=== PATIENT | male | born 1970 | race Caucasian/White ===

== ENCOUNTER 2023-10-27 20:01 | Inpatient (IN) | payer OTHER, SELFPAY ==
[2023-10-27 14:51] VITALS: BP 127/96
--- NOTE | 2023-10-27 15:44 | ED.GENMED ---
History of Present Illness
General
Chief Complaint: Abdominal Pain
Source: patient
Exam Limitations: none
Time Seen by Provider: 10/27/23 15:09
Nursing documentation reviewed up to this point in time: agreed with
Travel History
Have you had any contact with someone who has COVID-19?: No
Do you have any symptoms of coronavirus? Fever > 100 degrees, chills, cough, shortness of breath, sore throat, loss of taste or smell, muscle aches, or headache?: No
History of Present Illness
History of Present Illness:
52-year-old male with no chronic medical issues presents for evaluation of abdominal pain. Patient reports symptoms have been ongoing for the past 8 weeks but he says they are becoming more frequent and more intense. He says that for the past 2
weeks or so they have been essentially constant with waxing waning intensity. He reports an intense sharp pain in the periumbilical region that radiates towards the epigastrium and across the upper abdomen. He says that symptoms seem to be worse
at night, no other triggering factors noted. No relieving factors noted�he has tried esio-btb-bznmlya medication such as Pepto-Bismol, Gas-X, Maalox, Tums without success. He says he has had some nausea and occasional vomiting particular at
nighttime. Denies any diarrhea or constipation. Denies any urinary symptoms. Denies any fevers or chills. He has never had similar symptoms in the past. He denies any prior abdominal surgeries. He does note he has been under tremendous stress
with his job recently. He does admit to cigarette smoking but denies any drug use including marijuana, denies any regular alcohol use (he says 1-2 drinks every 2 weeks).
Review of Systems
Review of Systems
All Other Systems: ROS reviewed and negative except as documented in HPI and ROS
Constitutional: Denies fever or chills
Respiratory: Denies cough or trouble breathing
Cardiac: Denies chest pain or palpitations
ABD/GI: Reports abdominal pain, nausea and vomiting; Denies diarrhea or constipated
: Denies dysuria, frequency or flank pain
Musculoskeletal: Denies neck pain or back pain
Neurological: Denies dizzy or headache
Phy Exam
Physical Exam
Physical Exam:
General: Awake, alert, oriented x3; no acute distress
Head: Normocephalic, atraumatic
Eyes: Conjunctiva normal, EOMI, pupils equal round and reactive to light bilaterally, sclera anicteric
Throat: Airway intact, handling secretions
Neck: Trachea midline, supple without meningismus
Lungs: Clear to auscultation bilaterally, no wheezing, rales, rhonchi
Heart: Tachycardia with regular rhythm, no murmurs, gallops, or rubs
Abd: Soft, non distended, tender to palpation in the periumbilical region as well as across the upper abdomen
Neuro: Cranial nerves grossly intact, speech fluid
Skin: no rash
Extremities: No edema in extremities, warm and well-perfused
Scores
Heart Failure Risk
Heart Failure Risk Score: Not Applicable
Heart Score for Chest Pain Patients
STEMI patient?: Not applicable
Withdrawal Assessment of Alcohol
Withdrawal Assessment Completed?: Not applicable
Course
Orders/Labs/Results
Orders:
Orders
10/27/23 14:54
Electrocardiogram (*1) Urgent
Reason for Study: Abdominal Pain
EKG- Treatment ONCE
10/27/23 15:33
CT Abd/pelvis W Iv Cont Urgent
Comment:
Reason For Exam: periumbilical abd pain radiate to epigastrium
10/27/23 15:50
Electrocardiogram (*1) Urgent
Reason for Study: Abdominal Pain
EKG- Treatment ONCE
Pantoprazole [Protonix IV] 40 mg IV NOW STA
10/27/23 15:51
0.9% Sodium Chloride 1000 ml [Nss] 1,000 ml IV BOLUS
10/27/23 16:31
Complete Blood Count/With Diff Urgent
Comprehensive Metabolic Panel Urgent
Lipase Urgent
Troponin I Urgent
Urinalysis Reflex To Culture Urgent
Date Specimen was Collected: 10/27/23
Time Specimen was Collected: 15:21
Urine Microscopic Reflex Cult Urgent
10/27/23 18:53
GASTROINTESTINAL CONSULT Urgent
Consulting Provider: Jahaira Conway
Was physician already notified: Yes
Abnormal Lab Results
10/27/23
16:31
Plt Count 401 H 10^3/uL
(130-400)
Lipase 318 H U/L
(23-300)
Ur Occult Blood Reflex 1+ A
(Negative)
10/27/23 16:31
10/27/23 16:31
Vital Signs
Initial and Last Documented VS:
Initial Vital Signs
Temp Pulse Resp BP Pulse Ox
36.6 C 126 18 127/96 99
10/27/23 14:51 10/27/23 14:51 10/27/23 14:51 10/27/23 14:51 10/27/23 14:51
Last Documented Vital Signs
Temp Pulse Resp BP Pulse Ox
36.6 C 126 18 127/96 99
10/27/23 14:51 10/27/23 14:51 10/27/23 14:51 10/27/23 14:51 10/27/23 14:51
MDM/Problems Addressed
Differential Diagnosis Includes:
Gastritis, PUD, pancreatitis, cholelithiasis, cholecystitis, bowel obstruction, kidney stone
MDM/Problems Addressed:
52-year-old male presents for evaluation of abdominal pain intermittent for the past 8 weeks more persistent over the past 2 weeks. Located primarily in the periumbilical region but radiates across the upper abdomen. Seems to be worse at night.
No relieving factors. Tachycardic but otherwise normal vitals here. Physical exam as above. Check labs including a CBC and a CMP, lipase. Check urinalysis. Sent for CT of the abdomen pelvis. Symptoms sound consistent with GI pathology, nothing
to suggest cardiac equivalent�pain is primarily periumbilical although does radiate towards upper abdomen, patient is quite clear that there is no exertional component. He does however have some cardiac risk factors�will check an EKG and troponin
in an abundance of caution. Will provide some IV fluids. Treat with IV Protonix. Will reassess after the above.
Labs reviewed: CBC and CMP unremarkable. Lipase marginally elevated at 318. Troponin was undetectable. Urinalysis negative. CT of the abdomen pelvis showed hazy stranding around the second portion of the duodenum also adjacent to the head of the
pancreas�could be duodenal ulcer versus acute pancreatitis. Lipase was marginal and no significant vomiting--somewhat lower suspicion for acute pancreatitis especially as patient denies heavy alcohol use. Suspect this is more likely duodenal ulcer
and with symptoms significantly worsening and causing severe pain admit for GI consultation. Case discussed with GI for consultation. Case discussed with hospitalist for admission.
*Radiology
Radiology exam reviewed: radiology read reviewed
*Pulse Oximetry
Patient hypoxic: no
*EKG
Interpreted by ED Provider?: Yes
Heart Rate: 105
Rate: tachycardiac
Rhythm: sinus
[place]: normal axis
Interval: normal interval
QRS Pattern: normal QRS
Ischemia: no ischemia
*Critical Care Note
Total Time (30-74mins, 75-104mins- exclusive of procedures): Not Applicable
Data Reviewed
Source: patient
Patient Management
Discussion with other providers: Hospitalist (Discussed with hospitalist) and Financial Services Consultant (Discussed with gastroenterology)
Escalation/DeEscalation of care consider admission/obs:
Admission indicated
ED Attending Note
-
Portions of this chart may have been created with voice recognition software.� Occasional wrong word or��sound alike� substitutions may have occurred due to the inherent limitations of voice recognition software.
Discharge Plan
Departure
Patient Disposition: Admit
Date of Disposition: 10/27/23
Time of Disposition: 18:53
Admit to doctor: Allyson
Presentation/result/management discussed w/ accepting MD/DO: Hospitalist
Discharge Problem:
Abdominal pain, Duodenal ulcer
Referrals:
UNKNOWN - PT DOES,NOT KNOW [Family Provider] -
Interventions
Interventions:
*Risk Screen - Suicide Last Done: 10/27/23 14:51
*General Assessment Last Done: 10/27/23 14:51
*Neglect/Abuse Screening Last Done: 10/27/23 14:51
ED- Fall Risk Assessment Last Done: 10/27/23 15:50
*ED COVID-19 Vaccine History Last Done: 10/27/23 14:51
IA-Kqjcpf-Tziwdfoksz Assessment Last Done: 10/27/23 15:50
Discharge Date and Time
Print Language: LIBERIAN
[2023-10-27] MEDS: NSS 1000 IV (16:45)
[2023-10-27] MEDS: PROTONIX IV 40 MG IV ×2 (16:45→21:38)
[2023-10-27 16:54] LABS: % Basophils 0.7 % (0-2); % Eosinophils 2.3 % (0-6); % Immature Granulocytes 0.3 % (0-0.5); % Lymphocytes 32.2 % (20.5-51.1); % Monocytes 5.6 % (1.7-9.3); % Neutrophils 58.9 % (42.2-75.2); Absolute Basophils 0.1 10^3/uL (0-0.2); Absolute Eosinophils 0.2 10^3/uL (0-0.7); Absolute Lymphocytes 3.2 10^3/uL (1.2-3.4); Absolute Monocytes 0.6 10^3/uL (0.1-0.6); Absolute Neutrophils 5.8 10^3/uL (1.4-6.5); Hematocrit 43.9 % (39.0-52.0); Hemoglobin 15.3 g/dL (13.0-18.0); Mean Corp Hgb Conc. 34.9 g/dL (33.0-37.0); Mean Corpuscular Hgb 29.9 pg (27.0-31.0); Mean Corpuscular Volume 85.9 fL (80.0-94.0); Mean Platelet Volume 8.7 fL (7.4-10.4); Nucleated Red Blood Cells % 0 % (-); Platelet Count 401 10^3/uL (130-400); Red Blood Cell Count 5.11 10^6/uL (4.70-6.10); White Blood Cell Count 9.9 10^3/uL (4.8-10.8)
[2023-10-27 17:05] LABS: ALT (SGPT) 14 U/L (0-50); AST (SGOT) 23 U/L (17-59); Albumin 4.3 g/dl (3.5-5.0); Alkaline Phosphatase 78 U/L (38-126); Blood Urea Nitrogen 13 mg/dl (9-20); Calcium 9.4 mg/dl (8.4-10.2); Carbon Dioxide 24 mmol/L (22-30); Chloride 106 mmol/L (98-107); Glucose 90 mg/dl (70-99); Lipase 318 U/L (23-300); Potassium 4.6 mmol/L (3.5-5.1); Sodium 139 mmol/L (135-145); Total Bilirubin 0.3 mg/dl (0.2-1.3); Total Protein 7.5 g/dl (6.3-8.2); eGFR > 60.00
[2023-10-27 17:14] LABS: Troponin I < 0.012 ng/ml
[2023-10-27 17:20] VITALS: BP 123/79
[2023-10-27 18:51] LABS: Urine Albumin Negative (Neg - Trace); Urine Bilirubin Negative (Negative); Urine Character Clear (Clear); Urine Color Yellow; Urine Glucose Negative (Negative); Urine Ketone Negative (Negative); Urine Leukocyte Negative (Negative); Urine Nitrite Negative (Negative); Urine Occult Blood 1+ (Negative); Urine Urobilinogen Negative (Neg - 1+)
[2023-10-27 18:54] VITALS: BP 125/79
[2023-10-27 19:15] LABS: Urine Bacteria Few (Negative); Urine Red Blood Cell 0-2 /HPF (0-2); Urine White Cell 0-2 /HPF (0-5)
--- NOTE | 2023-10-27 19:48 | HPS.HSE ---
Family Physician
-
Family Physician: NOT KNOW UNKNOWN - PT DOES
Chief Complaint
-
Abd Pain
History of Present Illness
Patient is a 52y M with no significant PMH who presents to ED complaining of abdominal pain. Patient states that he has had abdominal pain for the past 3-4 weeks. His symptoms have been gradually progressive in that time. He notes that pain is
intermittent and migratory. He haad his most severe episode of pain after eating ice cream a few nights ago. He denies any changes in bowel habits, black or bloody stools. He denies any fevers or chills. He developed nausea and has had several
episodes of non-bloody / bilious emesis over the past 2-3 days.
He notes poor appetite and decreased PO intake due to his symptoms.
Patient denies any prior history of similar symptoms.
He takes no current medications.
Medical History
Past Medical History
Past Medical History: Reports None
Past Surgical History: Reports Other
Additional Past Surgical History:
Left Knee Surgeries (multiple)
Social History
Tobacco: Smoker (Current every day smoker. Approx 30 pack years total use.)
Alcohol: Occasional
Drug: None
Family History
Family History: Other (Father: CAD)
Allergies / Home Medications
Allergies reflects when Allergies were last updated in [facility].
Home Medications with original date entered in [facility]
Allergy/Medication List:
Allergies
Allergy/AdvReac Type Severity Reaction Status Date / Time
No Known Allergies Allergy Unverified 10/27/23 14:53
Home Medications
No Meds [No Current Medications] 10/27/23
Review of Systems
-
History Source: Patient
A 12 point ROS was completed and negative except as noted: Yes
Constitutional: Reports Fatigue; Denies Fever or Chills
Respiratory: Denies Cough or Trouble Breathing
Cardiac: Denies Chest Pain or Palpitations
Abdomen/GI: Reports Abdominal Pain, Nausea, Vomiting and Anorexia; Denies Diarrhea, Constipated, Bloody Stools or Black Stools
: Denies Dysuria, Frequency or Flank Pain
Neurological: Denies Dizzy or Headache
Psych: Denies Depression or Anxiety
Physical Exam
Vital Signs
Vital Signs
Temp Pulse Resp BP Pulse Ox
97.8 F 80 18 125/79 99
10/27/23 14:51 10/27/23 18:54 10/27/23 18:54 10/27/23 18:54 10/27/23 18:54
Physical Exam
General: Other (52y M in no acute distress.)
HEENT: Moist mucous membranes and PERRLA
Respiratory: Clear; No Wheezes, Rales or Rhonchi
Cardiac: S1/S2 and Regular Rhythm; No Murmur
GI: Soft, Normal Bowel Sounds and Other (Diffusely tender with voluntary guarding. Not rigid. No rebound.)
Musculoskeletal: No Clubbing, No Cyanosis and No Edema
Neuro: AO x 3
Laboratory Results
-
10/27/23 16:31
10/27/23 16:31
Laboratory Results
Total Bilirubin 0.3 mg/dl (0.2-1.3) 10/27/23 16:31
AST 23 U/L (17-59) 10/27/23 16:31
ALT 14 U/L (0-50) 10/27/23 16:31
Alkaline Phosphatase 78 U/L (38-126) 10/27/23 16:31
Troponin I < 0.012 ng/ml 10/27/23 16:31
Lipase 318 U/L (23-300) H 10/27/23 16:31
Impression/Plan
-
A/P: Patient is a 52y M with no significant PMH who presents to ED complaining of abdominal pain x several weeks.
Duodenal Ulcer
- Admit for further evaluation and treatment.
- CT shows area of stranding adjacent to duodenum consistent with ulcer.
- Lipase only minimally elevated and doubt primary pancreatitis.
- NPO, IVF support.
- IV PPI BID for now.
- GI evaluation for probable endoscopic examination.
- ? Surgical evaluation if needed depending on findings from EGD.
DVT Prophylaxis: SCDs
Code Status: Full
[2023-10-27 20:13] VITALS: BP 136/76
[2023-10-27] MEDS: LR 1000 IV (21:36)
[2023-10-27] MEDS: NSS (PRESERVATIVE FREE) 10 ML IV (21:39)
[2023-10-27 22:14] VITALS: BMI 23.3
[2023-10-27 22:15] VITALS: BP 105/76
--- NOTE | 2023-10-27 23:34 | PTCARENOTE ---
Receive pt from ER. Pt alert oriented X3, calm, in no distress. Pt assist X1 to his bed, steady on his feet. Pt oriented to the room, call seth within reach. Pt states that his pain is acceptable (3/10). VSS (T=97.8, HR=73, RR=18, DT=240/76,
SpO2=97% on RA). The pain is in the middle Abd and epigastric area. Protonix IV given and IVFs infusing as per order. Will continue to monitor the pt.
[2023-10-28] VITALS (8 sets, daily range): BP systolic 13–117; BP diastolic 58–92
--- NOTE | 2023-10-28 06:54 | CON.GI ---
Addendum entered and electronically signed by Jahaira Conway MD 10/28/23 10:44:
I saw and examined the patient.
The DIRECTOR OF [employer] ADS or PA's note was reviewed and I agree with the note.
Comment: 52 yo M here with abd pain last 2 months progressively getting worse with n/v recently. CT as noted below. + smoking. No NSAIDs, rare ETOH.
Plan for EGD - r/a/b reviewed with pt risks inc bleeding, infection, perforation.
Will be best way to assess if DU.
If no DU plan MRI for further eval.
Original Note:
Consultation
-
Date/Time Consultation Requested: 10/27/231829
Date/Time Consultation Performed: 10/28/23829
Requesting Provider: Ronnie Braden MD
Performing Provider: SWATHI Pickering, Ramya Conway MD
Reason for Consultation: abdominal pain
Medical History
Chief Complaint / HPI
History of Present Illness:
Pt is a 52yo with hx multiple knee surgeries in past with onset of abdominal pain, On admission lipase [address] with concern for duodenal ulcer with noted 2 cm diverticulum in duodenum and hazy inflammatory stranding around
head of pancreas suggesting ulceration vs reflecting pancreatitis. In reviewing with patient over past 2 month worsening abdominal pain. Initially intermittent no constant but admits to some improvement since admission. Pt has lost over 10 lbs.
He describes pain as epigastric and in upper abdomen. He has rare NSAID use and denies ETOH use. + chronic tobacco use. Pt with difficulty is stating what makes pain better or worse. No improvement with multiple OTC medication such as tums,
acid suppressant etc. No medication or supplement prior to onset. + associated nausea and vomiting small volume of non bloody emesis. Pt denies dysphagia, GERD, diarrhea, constipation, or rectal bleeding. No hx EGD or colonoscopy in past.
Past Medical History
Past Surgical History: Orthopedic (multiple knee surgeries)
Social History
Tobacco: Smoker (1PPD)
Alcohol: Occasional (rare 1 drink every 1- 2 weeks)
Drug: None
Living: Alone
Employment: Employed
Family History
Family History: Other (no family hx GI malignancies, panc or liver issues )
Allergies / Home Medications
Allergy/AdvReac Type Severity Reaction Status Date / Time
No Known Allergies Allergy Unverified 10/27/23 14:53
�Medication �Instructions �Recorded
No Meds [No Current Medications] 10/27/23
Review of Systems
-
History Source: Patient
Constitutional: Reports Weight Loss (10 + lbs in 2 months)
EENT: Reports No Symptoms
Respiratory: Reports No Symptoms
Cardiac: Reports No Symptoms
Abdomen/GI: Reports Abdominal Pain, Nausea and Vomiting
: Reports No Symptoms
Musculoskeletal: Reports No Symptoms
Skin: Reports No Symptoms
Neurological: Reports Weakness
Endocrine: Reports No Symptoms
Hematologic/Lymphatic: Reports No Symptoms
Vital Signs
Temp Pulse Resp BP Pulse Ox
97.8 F 73 18 105/76 97
10/27/23 22:15 10/27/23 22:15 10/27/23 22:15 10/27/23 22:15 10/27/23 22:32
Physical Exam
Exam
General: Well Developed, Well Nourished and No Apparent Distress
HEENT: Normocephalic and Anicteric
Respiratory: Clear
Cardiac: Regular Rhythm
GI: Soft, Non Distended and Tender (epigastric tenderness)
Musculoskeletal: No Clubbing and No Cyanosis
Skin: Warm and Dry
Neuro: Awake, Alert and AO x 3
Psych: Calm
Results
WBC 9.9 10^3/uL (4.8-10.8) 10/27/23 16:31
Hgb 15.3 g/dL (13.0-18.0) 10/27/23 16:31
Hct 43.9 % (39.0-52.0) 10/27/23 16:31
MCV 85.9 fL (80.0-94.0) 10/27/23 16:31
Plt Count 401 10^3/uL (130-400) H 10/27/23 16:31
Absolute Neuts (auto) 5.8 10^3/uL (1.4-6.5) 10/27/23 16:31
Sodium 139 mmol/L (135-145) 10/27/23 16:31
Potassium 4.6 mmol/L (3.5-5.1) 10/27/23 16:31
Chloride 106 mmol/L (98-107) 10/27/23 16:31
Carbon Dioxide 24 mmol/L (22-30) 10/27/23 16:31
BUN 13 mg/dl (9-20) 10/27/23 16:31
Creatinine 1.0 mg/dL (0.7-1.3) 10/27/23 16:
Calcium 9.4 mg/dl (8.4-10.2) 10/27/23 16:31
Total Bilirubin 0.3 mg/dl (0.2-1.3) 10/27/23 16:31
AST 23 U/L (17-59) 10/27/23 16:31
ALT 14 U/L (0-50) 10/27/23 16:31
Alkaline Phosphatase 78 U/L (38-126) 10/27/23 16:
Lipase 318 U/L (23-300) H 10/27/23 16:31
Diagnostic Image Results:
10/27/23 CT Abd/pelvis W Iv Cont
There is a 2 cm probable diverticulum at the medial aspect of the second portion of the duodenum, however, there is associated hazy inflammatory stranding around the head of the pancreas and the second portion of the duodenum suggesting that this
may be ulceration. Alternatively, the inflammatory stranding may reflect pancreatitis.
Correlation with the patient's serum amylase and lipase is recommended.
If amylase and lipase are normal, and endoscopy may be useful for further evaluation.
Prior GI Procedures:
EGD: none
Colonoscopy:none
Assessment / Plan
-
Pt is a 52yo with hx multiple knee surgeries in past with onset of abdominal pain x2 months unimproved on OTC medications. On admission lipase [address] with concern for duodenal ulcer with noted 2 cm diverticulum in duodenum
and hazy inflammatory stranding around head of pancreas suggesting ulceration vs reflecting pancreatitis. Denies NSAID or any medication prior to onset. No hx EGD or colonoscopy in past.
-abdominal pain x2 months
-mild lipase elevation on admission
-CT with concern for duodenal diverticulum and hazy stranding pancreatic head --possible duodenal ulcer
-wt loss
-tobacco abuse
PLAN:
Etiology of symptoms related to duodenal ulcer, pancreatitis vs other
plan for EGD today
if EGD neg consider MRI vs MRE pending finding of EGD
trend labs-repeat LFT and lipase pending from this am
will follow
-
-
Thank you for consultation and allowing me to participate in the patient's care. Please call the assistant corporation counsel GI physician during the after hours with any questions or concerns.
[2023-10-28] MEDS: PROTONIX IV 40 MG IV (08:10)
[2023-10-28] MEDS: NSS (PRESERVATIVE FREE) 10 ML IV (08:10)
[2023-10-28 09:00] LABS: Hematocrit 41.1 % (39.0-52.0); Hemoglobin 14.1 g/dL (13.0-18.0); Mean Corp Hgb Conc. 34.3 g/dL (33.0-37.0); Mean Corpuscular Hgb 29.7 pg (27.0-31.0); Mean Corpuscular Volume 86.5 fL (80.0-94.0); Mean Platelet Volume 8.7 fL (7.4-10.4); Platelet Count 362 10^3/uL (130-400); Red Blood Cell Count 4.75 10^6/uL (4.70-6.10); Red Cell Dist. Width 12.9 % (11.5-14.5); White Blood Cell Count 6.7 10^3/uL (4.8-10.8)
--- NOTE | 2023-10-28 09:07 | W.PN.HOSP.TC ---
Today's Communication/Plan
-
Cleared by GI for discharge today
Assessment / Plan
Assessment / Plan
HPI: 52y M with no significant PMH who presents to ED complaining of abdominal pain x several weeks.
Duodenal Ulcer
- CT shows area of stranding adjacent to duodenum consistent with ulcer.
- Appreciate GI input, EGD 10/27 shows nonbleeding duodenal ulcer
- GI recommends Protonix 40 mg p.o. twice daily for 8 weeks, then daily
- Can also take Carafate for 1-2 weeks for pain
- Follow-up with GI in the office
Cigarette nicotine dependency
� Cigarette cessation counseling has been provided
� Will discharge on nicotine gum as well as Chantix
DVT Prophylaxis: SCDs
Code Status: Full
Physical Exam
General: No acute distress
HEENT: Normocephalic, Atraumatic, EOMI, MMM
Respiratory: Clear to Auscultation bilaterally
Cardiac: Normal S1/S2, Regular Rate and Rhythm
GI: Soft, Nontender, Nondistended, Normal Bowel Sounds
Extremities: No Clubbing, Cyanosis, or Edema
Neuro: Nonfocal/Grossly Intact
Psych: Calm, Cooperative
Derm: No Visible lesions
Anticipated Discharge: Today
Subjective/Interval History
-
Date of Service: October 28, 2023
Patient is abdominal pain resolved. No fever, no vomiting.
Objective Data
-
Labs:
Laboratory Results
10/28/23
08:42
WBC 6.7
Hgb 14.1
Hct 41.1
Plt Count 362
Sodium Pending
Potassium Pending
Chloride Pending
Carbon Dioxide Pending
BUN Pending
Creatinine Pending
Glucose Pending
Calcium Pending
Total Bilirubin Pending
AST Pending
ALT Pending
Alkaline Phosphatase Pending
Vital Signs:
Vital Signs
Temp Pulse Resp BP Pulse Ox
97.7 F 70 16 98/67 99
10/28/23 07:40 10/28/23 07:40 10/28/23 07:40 10/28/23 07:40 10/28/23 07:40
I&O
10/27/23 10/28/23 10/29/23
06:59 06:59 06:59
Intake Total 640 / 640
Balance 640 / 640
[2023-10-28 09:16] LABS: ALT (SGPT) 12 U/L (0-50); AST (SGOT) 21 U/L (17-59); Albumin 3.7 g/dl (3.5-5.0); Alkaline Phosphatase 69 U/L (38-126); Blood Urea Nitrogen 12 mg/dl (9-20); Calcium 9.1 mg/dl (8.4-10.2); Carbon Dioxide 26 mmol/L (22-30); Chloride 107 mmol/L (98-107); Direct Bilirubin 0.3 mg/dl (0.0-0.4); Estimated Creatinine Clearance 93 ml/min; Glucose 89 mg/dl (70-99); Lipase 151 U/L (23-300); Potassium 4.7 mmol/L (3.5-5.1); Sodium 139 mmol/L (135-145); Total Bilirubin 0.7 mg/dl (0.2-1.3); Total Protein 6.7 g/dl (6.3-8.2); eGFR > 60.00
[2023-10-28] MEDS: LR 1000 IV (09:42)
[2023-10-28] MEDS: CARAFATE 1 GRAM PO (11:52)
--- NOTE | 2023-10-28 12:14 | W.DCSUMMARY ---
Discharge Summary
Discharge Data
Date of Admission: 10/27/23
Date of Discharge: 10/28/23
-
Pending Results: Yes
Additional Pending Results:
Biopsies of the stomach mucosa
Hospital Course
Discharge diagnosis:
Duodenal ulcer
Abdominal pain
Cigarette nicotine dependency
Consults: GI
Procedures:
10/28/2023 EGD
Impression: - Normal esophagus.
- Erythematous mucosa in the stomach. Biopsied.
- Non-bleeding duodenal ulcer with no stigmata of
bleeding.
- Normal second portion of the duodenum.
Recommendation: - Resume regular diet.
- Continue present medications. Protonix 40 bid x 8
weeks before breakfast and dinner then daily. Can do
carafate before lunch and bedtime for 1-2 weeks as
well for pain.
- Await pathology results.
- Quit smoking.
CT abd/pelvis:
2 cm probable diverticulum at the medial aspect of the second portion of the duodenum, however, there is associated hazy inflammatory stranding around the head of the pancreas and the second portion of the duodenum suggesting that this may be
ulceration. Alternatively, the inflammatory stranding may reflect pancreatitis.
Correlation with the patient's serum amylase and lipase is recommended.
If amylase and lipase are normal, and endoscopy may be useful for further evaluation.
Hospital course:
52-year-old male with a past medical history of cigarette nicotine dependency presented with worsening abdominal pain. CT of the abd/pelvis was concerning for a duodenal ulcer. Patient was seen in conjunction with GI. EGD showed a nonbleeding
duodenal ulcer with no stigmata of bleeding. GI recommends Protonix 40 mg twice a day for 8 weeks, then 40 mg daily. GI also recommends Carafate for 1-2 weeks for his pain.
Patient also has cigarette nicotine dependency. Cigarette cessation counseling has been provided. Patient is interested in quitting. He is amenable to trying nicotine gum with Chantix to aid in his efforts.
Noted is that patient does not have insurance. He is currently applying for medical assistance.
Patient is medically stable and cleared by GI for discharge. He needs to follow-up with GI in the office in 6-8 weeks.
Disposition: Home self-care
Discharge planning: Required 33 minutes
Discharge Plan
-
Patient Disposition: Home (Routine Discharge)
Discharge Diagnosis/Procedures: Duodenal ulcer, cigarette nicotine dependency
Condition: Fair
Diet: Regular
Activity: As tolerated
Driving Restrictions: As prior to admission
Activity Restrictions/Additional Instructions:
GI recommends Protonix/pantoprazole 40 mg twice a day before breakfast and dinner for 8 weeks, then daily.
Can take Carafate before meals and bedtime for 1-2 weeks for pain.
Please quit smoking.
Establish care and follow-up with your primary care doctor in 1 week.
Referrals:
Jahaira Conway MD [Active] - in six weeks
UNKNOWN - PT DOES,NOT KNOW [Family Provider] -
Prescriptions:
New
sucralfate 1 gram Tablet
1 g PO ACHS Qty: 60 0RF
pantoprazole 40 mg Tablet,Delayed Release (Dr/Ec)
40 mg PO BID Qty: 120 0RF
nicotine (polacrilex) 4 mg gum
4 mg buccal Q2H Qty: 50 0RF
varenicline [Chantix Starting Month Box] 0.5 mg (11)- 1 mg (42) tablets,dose pack
See Rx Instructions .ROUTE .COMPLEX Qty: 53 0RF
Rx Instructions:
orally per package directions
Discharge Orders:
Discharge Patient (As Directed); Ordered 10/28/23
Ordered By: Nikolai Link
Discharge Date and Time
Discharge Date/Time: 10/28/23 15:44
Print Language: NIGERIEN
--- NOTE | 2023-10-28 15:20 | PTCARENOTE ---
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 Patient sttates that he drove here. Fernando texted Dr. Link to confirm that patient cannot drive as he recived propofol. Fernando text recieved from Dr. Link that patient cannot drive for 24 hours after
recieving propofol.
--- NOTE | 2023-10-28 15:35 | CM ---
CM attempted to complete initial assessment with Eddavid, however he was off the floor and when he returned to the unit was discharged within 10 minutes.
== END 2023-10-28 15:44 | disposition home or self-care (01) | DRG 384 ==
LOC: 4 EAST ACU 20:01
PROVIDERS: ADMITTING PHYSICIAN Hospitalist; ATTENDING PHYSICIAN Family Medicine; CONSULT PHYSICIAN Internal Medicine Gastroenterology; EMERGENCY PHYSICIAN Emergency Medicine
PROC: 0DB68ZX Excision of Stomach, Via Natural or Artificial Opening Endoscopic, Diagnostic (ICD-10-PCS; 2023-10-28)
DX: K26.9 Duodenal ulcer, unspecified as acute or chronic, without hemorrhage or perforation (principal); R11.14 Bilious vomiting; F17.210 Nicotine dependence, cigarettes, uncomplicated; K57.10 Diverticulosis of small intestine without perforation or abscess without bleeding; K31.89 Other diseases of stomach and duodenum
CPT/HCPCS: 88305; 74177; 80053; 81003; 81015; 82248; 83690; 84484; 85025; 85027; 88342; 93005; 96361; 96374; 99285; Q9967